=== PATIENT | female | born 1940 | race Caucasian/White ===

== ENCOUNTER 2018-05-23 10:45 | Emergency (ER) | payer MEDICARE ==
[~2018-05-23] VITALS: Ht 170.2 cm; Wt 71.7 kg
[2018-05-23 11:16] VITALS: Ht 170.2 cm; Wt 71.7 kg
--- NOTE | 2018-05-23 11:25 | ERD ---
ER Documentation Chief Complaint Chief Complaint Complains of a trip and fall with a bump on the forehead, HPI The patient is a 77-year-old female, presenting to the ER because of mechanical fall. She complained of right forehead, right wrist, right hand, right knee pain. She denies syncope, near syncope, numbness, neck pain, chest pain, dyspnea, abdominal pain, vomiting. She is able to ambulate without any difficulty. She does not smoke nor drink, did not have tetanus for many years Medical history: Neuropathy, insomnia, history of kidney stones Past surgical history: Cholecystectomy, hysterectomy ROS All systems reviewed and are negative except as per history of present illness. Medications Home Meds Active Scripts Hydrocodone/Acetaminophen (Ray 5-325 Tablet) 1 Each Tablet, 1 TAB PO Q6H PRN for PAIN, #7 TAB Prov:TATIANA MADRIGAL MD 05/23/18 Ibuprofen* (Motrin*) 600 Mg Tab, 600 MG PO Q6H PRN for PAIN AND OR ELEVATED TEMP, #20 TAB Prov:TATIANA MADRIGAL MD 05/23/18 Allergies Allergies: Coded Allergies: codeine (Verified Allergy, Intermediate, vom, 05/23/18) Sulfa (Sulfonamide Antibiotics) (Verified Allergy, Unknown, hives, 05/23/18) lisinopril (Verified Allergy, Unknown, hives, 05/23/18) Physical Exam Vitals Vital Signs Date Temp Pulse Resp B/P (MAP) Pulse Ox O2 O2 Flow FiO2 Time Delivery Rate 05/23/18 98.7 77 20 153/73 100 11:16 (99) Physical Exam Const: No acute distress. Head: Atraumatic. Eyes: Normal Conjunctiva. ENT: Normal External Ears, Nose and Mouth. Small right forehead hematoma, no laceration, no nystagmus Neck: Full range of motion. No meningismus. Resp: Clear to auscultation bilaterally. Cardio: Regular rate and rhythm. Abd: Soft, non distended, normal bowel sounds, non tender. Skin: No petechiae or rashes. Back: No midline or flank tenderness. Ext: Right knee with a superficial abrasion, with full range of motion Neur: Awake and alert. No focal deficit Psych: Normal Mood and Affect. Results 24 hrs Current Medications Medications Dose Sig/Rosa Start Time Status Last (Trade) Ordered Route PRN Stop Time Admin Dose Reason Admin Diphtheria/ 0.5 ml ONCE ONCE 05/23/18 DC 05/23/18 Tetanus/Acell IM* 12:00 11:50 Pertussis 05/23/18 12:01 (Adacel) 1 tab ONCE ONCE 05/23/18 Acetaminophen PO 13:00 / 05/23/18 13:01 Hydrocodone Bitart (Ray (5/325)) Ondansetron 4 mg ONCE STAT 05/23/18 DC HCl (Zofran ODT 12:49 Odt) 05/23/18 12:51 Procedures/[place] [address] Radiology Main Line: [phone] DIAGNOSTIC IMAGING REPORT Patient: ENDY VAUGHAN : 1940 Age: 77 Sex: F MR #: [id number] DOS: 05/23/18 1145 Ordering MD: TATIANA MADRIGAL MD Location: E/R Room/Bed: PROCEDURE: CT facial bones CLINICAL INDICATION: Status post fall TECHNIQUE: A CT of the facial bones was performed on a GE 64-slice CT scanner utilizing high-resolution axial images. Sagittal, coronal, and multiplanar reformatted images were made. Additionally, 3-D reformatted images were made. The CTDIvol is 29.32 mGy and the DLP is 539.68 mGycm. One or more the following dose reduction techniques were utilized: Automated exposure control, adjustment of the mA/ or kV according to patient's size, or use of iterative reconstruction technique. DICOM images are available for review. COMPARISON: None. FINDINGS: The osseous structures are intact with no evidence of fracture. The orbits, as visualized, appear intact. there is mild right lateral periorbital and frontal soft tissue swelling. The mandible is intact. The visualized paranasal sinuses are clear. IMPRESSION: CT facial demonstrates right lateral periorbital and frontal soft tissue swelling without underlying fracture. RPTAT: [facility] Physician Aleida Date Time Electronically viewed and signed by Physician Aleida on 05/23/2018 12:41 RL/ CC: TATIANA MADRIGAL MD [id number] [place] [address] Radiology Main Line: [phone] DIAGNOSTIC IMAGING REPORT Patient: ENDY VAUGHAN : 1940 Age: 77 Sex: F MR #: [id number] DOS: 05/23/18 1141 Ordering MD: TATIANA MADRIGAL MD Location: E/R Room/Bed: PROCEDURE: CT Brain without contrast. CLINICAL INDICATION: Status post fall TECHNIQUE: A CT of the brain was performed on a [employer] 64-slice CT scanner utilizing axial imaging from the skull base through the vertex without IV contrast. Multiplanar reformatted images were made. Images were reviewed on a PACS workstation. The CTDIvol is 38.97 mGy and the DLP is 634.23 mGycm. One or more the following dose reduction techniques were utilized: Automated exposure control, adjustment of mA/ or kV according to patient's size, or use of iterative reconstruction technique. DICOM images are available for review. COMPARISON: None FINDINGS: There is no intracranial hemorrhage, mass effect, or midline shift. the ventricles and sulci are mildly prominent although unremarkable for age. Minimal hypoattenuation is seen within the periventricular white matter. There is good smiley-white matter differentiation throughout the cerebral hemispheres. The visualized brainstem and cerebellum are unremarkable. No extra-axial fluid collection is seen. The visualized paranasal sinuses and osseous structures are grossly unremarkable. IMPRESSION: No evidence of acute intracranial pathology. There is mild generalized volume loss with microvascular changes. RPTAT: [facility] Physician Aleida Date Time Electronically viewed and signed by Physician Aleida on 05/23/2018 12:26 RL/ CC: TATIANA MADRIGAL MD [id number] [place] [address] Radiology Main Line: [phone] DIAGNOSTIC IMAGING REPORT Patient: ENDY VAUGHAN : 1940 Age: 77 Sex: F MR #: [id number] DOS: 05/23/18 1141 Ordering MD: TATIANA MADRIGAL MD Location: E/R Room/Bed: PROCEDURE: XR right hand and wrist CLINICAL INDICATION: Pain TECHNIQUE: PA, oblique, lateral and ulnar deviated views of the right wrist as well as PA, oblique and lateral views of the right hand COMPARISON: None FINDINGS: Right wrist: Mineralization is intact. No displaced fracture. Nonspecific cystic change in the scaphoid. ST-T marginal osteophyte formation and subchondral cystic change without significant cartilage space narrowing. Marginal osteophyte formation in the carpometacarpal joint with mild cartilage space narrowing. Cystic change in the ulnar base of the lunate. Right hand: Mineralization is intact. Minimally displaced and angulated fracture of the base of the fifth metacarpal. Mild fourth DIP marginal osteophyte formation. MCP cartilage spaces are maintained. Mild soft tissue fullness about the fifth MCP. IMPRESSION: 1. Minimally displaced and angulated fracture of the base of the fifth metacarpal. 2. Scattered degenerative changes as above. RPTAT: [facility] Physician Rosales Date Time Electronically viewed and signed by Bonita Andrews Physician on 05/23/2018 12:40 RG/ CC: TATIANA MADRIGAL MD [id number] [place] [address] Radiology Main Line: [phone] DIAGNOSTIC IMAGING REPORT Patient: ENDY VAUGHAN : 1940 Age: 77 Sex: F MR #: [id number] DOS: 05/23/18 1141 Ordering MD: TATIANA MADRIGAL MD Location: E/R Room/Bed: PROCEDURE: XR right hand and wrist CLINICAL INDICATION: Pain TECHNIQUE: PA, oblique, lateral and ulnar deviated views of the right wrist as well as PA, oblique and lateral views of the right hand COMPARISON: None FINDINGS: Right wrist: Mineralization is intact. No displaced fracture. Nonspecific cystic change in the scaphoid. ST-T marginal osteophyte formation and subchondral cystic change without significant cartilage space narrowing. Marginal osteophyte formation in the carpometacarpal joint with mild cartilage space narrowing. Cystic change in the ulnar base of the lunate. Right hand: Mineralization is intact. Minimally displaced and angulated fr acture of the base of the fifth metacarpal. Mild fourth DIP marginal osteophyte formation. MCP cartilage spaces are maintained. Mild soft tissue fullness about the fifth MCP. IMPRESSION: 1. Minimally displaced and angulated fracture of the base of the fifth metacarpal. 2. Scattered degenerative changes as above. RPTAT: [facility] Physician Rosales Date Time Electronically viewed and signed by Bonita Andrews Physician on 05/06 12:40 RG/ CC: TATIANA MADRIGAL MD [id number] MEDICAL MAKING DECISION: The patient is a 77-year-old female, presenting with acute fracture of the right fifth metacarpal, acute facial contusion, acute right knee abrasion. She was treated with Tdap IM, Ray 5 mg p.o. for pain, Zofran ODT for nausea, ulnar gutter splint and sling. Splint neurovascular is intact. The left knee abrasion was cleaned with normal saline and dressed with bacitracin The differential diagnoses considered include but are not limited to fracture, contusion, sprain, internal derangement Departure Diagnosis: Primary Impression: Hand fracture, right Additional Impressions: Abrasion of right knee Facial contusion Condition: Good Comments She was discharged with Ray and Motrin I discussed the findings with the patient. I advised the patient to follow-up with her orthopedist in 2-3 days, sooner if needed and return if any concern. Disclaimer: Inadvertent spelling and grammatical errors are likely due to EHR/dictation software use and do not reflect on the overall quality of patient care. Also, please note that the electronic time recorded on this note does not necessarily reflect the actual time of the patient encounter. TATIANA MADRIGAL MD May 23, 2018 11:25
[2018-05-23] MEDS ORDERED: DIPHTH/TET/ACEL PERTUSS (ADULT) 0.5 ML VIAL IM* ONE (12:00)
[2018-05-23] MEDS ORDERED: IBUP-1542 PO (12:54)
[2018-05-23] MEDS ORDERED: HYDR-4011 PO (12:54)
[2018-05-23] MEDS: HYDROCODONE/APAP (5/325) TAB PO ONE ×3 (13:12→13:41)
[2018-05-23] MEDS: ONDANSETRON (ODT) 4 MG TAB ODT STA ×3 (13:12→13:42)
[2018-05-23 13:52] VITALS: BP 142/85; PULSE 79; RESP 20
== END 2018-05-23 13:53 | disposition home or self-care (01) ==
LOC: E/R 10:45
DX: S62.316A Displaced fracture of base of fifth metacarpal bone, right hand, initial encounter for closed fracture (principal); S80.211A Abrasion, right knee, initial encounter; S00.83XA Contusion of other part of head, initial encounter; W01.0XXA Fall on same level from slipping, tripping and stumbling without subsequent striking against object, initial encounter; Y92.9 Unspecified place or not applicable; Z23 Encounter for immunization
CPT/HCPCS: 70450; 70486; 90471; 90715